=== PATIENT | female | born 1970 | race Caucasian/White ===

== ENCOUNTER → 2017-04-18 | Outpatient (CLI) | payer OTHER | LOC: FIMAGING 11:30 | PROVIDERS: ATTEND Specialist | DX: Z86.711 Personal history of pulmonary embolism (principal) ==

== ENCOUNTER 2017-08-21 10:00 | Emergency (ER) | payer OTHER ==
[2017-08-21 10:12] VITALS: RESP 18
--- NOTE | 2017-08-21 10:16 | EDPHY ---
H & P Stated Complaint: L lower lat rib pain, sharp,increase w/breathing,cough, movement;hx PEs HPI/ROS: CHIEF COMPLAINT: Chest pain HISTORY OF PRESENT ILLNESS: The patient is an anticoagulated 47 y/o female with a history of chronic chest pain and PEs complaining of chest pain worsening over the last 2 weeks. 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 She currently describes pleuritic pain underneath her left anterior ribs wrapping around to her back and left shoulder. It feels "like a dagger up under my ribs" that feels exactly the same as her initial PE diagnosis. She's had hemoptysis for the last 7 years since her initial PEs, but describes worsening of this as well.. Over the last 2 days , she developed associated dyspnea particularly with minor exertion like walking across the room or playing the piano. She has chills, but denies fever, leg swelling or pain, abdominal pain, vomiting, diarrhea. She received a flu vaccination this season. REVIEW OF SYSTEMS: A ten point review of systems was performed and is negative with the exception of the items mentioned in the HPI. States she gets sick frequently. Past medical history: 1. PEs, "18 blood clots in my lungs" 7 years ago on Coumadin without known etiology and evaluated by contract consultant 2. Chronic chest pain 3. Osteoarthritis 4. Fabby's 5. Anxiety - 2.5mg Valium 6. Bipolar disorder - [place] Past surgical history: Noncontributory Prior medical records reviewed including ED visit 05/31/15 for chest pain. Family history: Mother: Atrial flutter, rheumatoid arthritis Social history: Plays piano avidly. 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 . Moving to [place] in 2 weeks. Uses CBD for pain. Broadcast Chief Engineer: Dr. Cardoso. General Appearance: Alert. Vital signs reviewed. Blood pressure 152/93. Eyes: Pupils equal and round, no conjunctival injection, no discharge. Anicteric. ENT, Mouth: Mucous membranes are moist, no oropharyngeal erythema or edema. Neck: No lymphadenopathy, supple. Respiratory: Lungs are clear to auscultation; no wheezes, rales, or rhonchi. Cardiovascular: Regular rate and rhythm; no murmur, rub, or gallop. Gastrointestinal: Abdomen is soft and nontender, no masses or organomegaly, bowel sounds normal. Skin: Warm and dry, no rashes on exposed skin, normal color. Back: Nontender to palpation over the thoracolumbar spine. No CVAT. Extremities: No lower extremity edema, no calf tenderness or swelling. Neurological: Alert and oriented. Moving all four extremities easily and equally. Psychiatric: Normal affect. - Personal History LMP (Females 10-55): Hysterectomy Current Tetanus Diphtheria and Acellular Pertussis (TDAP): Yes Tetanus Vaccine Date: 2002 - Medical/Surgical History Hx Asthma: Yes Hx Chronic Respiratory Disease: Yes Hx Diabetes: No Hx Cardiac Disease: No Hx Renal Disease: No Hx Cirrhosis: No Hx Alcoholism: No Hx HIV/AIDS: No Hx Splenectomy or Spleen Trauma: No Other PMH: Hysterectomy, plurisy, PE x18 episodes, chronic pain, chronic SOB, adenomyosis, Rt AC arthritis shoulder - Social History Smoking Status: Never smoked Constitutional: Initial Vital Signs Temperature (C) 36.4 C 08/21/17 10:05 Heart Rate 70 08/21/17 10:05 Respiratory Rate 18 08/21/17 10:05 Blood Pressure 152/93 H 08/21/17 10:05 O2 Sat (%) 100 08/21/17 10:05 O2 Delivery Mode Room Air Allergies/Adverse Reactions: meperidine HCl [From Demerol] Allergy (Verified 08/21/17 10:07) poss interaction w/ MAOI prednisone Allergy (Verified 08/21/17 10:07) "makes me crazy" Home Medications: Medication Instructions Recorded Diazepam [Valium (RX)] 20 mg PO 11/15/11 Levalbuterol Inhaler [Xopenex Hfa 1 puffs IH TID 11/15/11 Inhaler] Levothyroxine [Synthroid 175 mcg 175 mcg PO DAILY06 11/15/11 (RX)] [place] Carbon[place] [[place]] 900 mg PO 11/15/11 Coumadin 07/30/13 Medical Decision Making - Diagnostics Imaging: Discussed imaging studies w/ call out operator Radiologist, I viewed and interpreted images myself ED Course/Re-evaluation: This is an anticoagulated 47 y/o female with history of chronic chest pain and PEs who presents with [id number] chest pain and dyspnea over the last 2 weeks. Her exam is unremarkable. Plan for IV, labs, EKG, chest x-ray. Main concern is for PE in the face of anticoagulation. I do not suspect ACS. Troponin is negative--her pain is acute on chronic and has been present for two weeks. No EKG findings of ischemia. The 12 lead EKG was interpreted by myself. Sinus rhythm rate 64. See hard copy and/or "tracemaster" electronic copy for interpretation. Chest x-ray: Possible airways disease. No pneumonia, pneumothorax. Chest CTA ordered. 1340: Chest CTA is negative for PE. INR 2.96--she is appropriately anticoagulated. Reassessed patient and discussed findings. She will be discharged home with recommendation to follow up with her PCP this week. She also plans to establish care in [place] when she moves there next month. Return precautions discussed. She is comfortable with this plan. She understands that the etiology of her pain has not been discovered. We talked about pleurisy as the diagnosis. - Data Points Laboratory Results: Laboratory Results 08/21/17 10:45 08/21/17 10:45 Departure - Departure Disposition: Home, Routine, Self-Care Clinical Impression: Pleurisy Condition: Good Instructions: Pleurisy (ED) Additional Instructions: Your chest CTA today was negative for PE. 1. Follow up with your primary care provider in the next week for continued symptoms. 2. Return to the ED for worsening of condition. Referrals: Casey Ahumada [Doctor of Osteopathy] - As per Instructions Report Scribed for: Shira Arteaga Report Scribed by: Melinda Connor Date of Report: 08/21/17 Time of Report: 11:04 Physician Review and Approval Statement: 08/21/17 10:16 Portions of this note were transcribed by the medical review specialist. I, Dr. Shira Arteaga, personally performed the history, physical exam, and medical decision- making; and confirmed the accuracy of the information in the transcribed note.
--- NOTE | 2017-08-21 10:24 | CPEKG ---
Heart Rate: 64 RR Interval: 938 P-R Interval: 204 QRSD Interval: 86 QT Interval: 440 QTC Interval: 454 P Flippin: 59 QRS Flippin: 45 T Wave Flippin: 73 EKG Severity - BORDERLINE ECG - EKG Impression: SINUS RHYTHM EKG Impression: BORDERLINE R WAVE PROGRESSION, ANTERIOR LEADS Electronically Signed By: Shira Arteaga 21-Aug-2017 15:01:53
[2017-08-21 11:15] LABS: PLATELET COUNT 263 10^3/uL (150-400)
[2017-08-21 11:56] LABS: INR 2.96 (0.83-1.16); PROTIME(PATIENT) 30.7 SEC (12.0-15.0)
[2017-08-21] MEDS ORDERED: IOPAMIDOL (ISOVUE 370) 100 ML BTL IV ONE (12:01)
[2017-08-21 14:25] VITALS: BP 115/83; PULSE 75; TEMP 98.4
[2017-08-21 14:28] VITALS: O2SAT 97
== END 2017-08-21 14:24 | disposition home or self-care (01) ==
DX: R09.1 Pleurisy (principal); J45.909 Unspecified asthma, uncomplicated
CPT/HCPCS: Q9967